=== PATIENT | female | born 1975 | race Two or more races ===

== ENCOUNTER 2019-09-05 01:10 | Emergency (ER) | payer OTHER ==
[~2019-09-05] VITALS: Ht 170.2 cm; Wt 82.0 kg
[2019-09-05] MEDS ORDERED: ONDANSETRON HCL 4MG/2ML INJ IV ONE (03:00)
[2019-09-05] MEDS ORDERED: MORPHINE SULFATE 2 MG/ML CPJ (NOT FOR IM USE) IV ONE (03:00)
[2019-09-05] MEDS ORDERED: KETOROLAC 30MG/ML VIAL IV ONE (04:00)
[2019-09-05] MEDS ORDERED: ETOMIDATE 2MG/ML 10ML VIAL IV ONE ×2 (06:15)
[2019-09-05] MEDS ORDERED: HYDROCODONE/ACETAMINOPHEN 5/325MG TABLET PO ONE (08:30)
[2019-09-05 10:25] VITALS: BP 128/88
== END 2019-09-05 10:22 | disposition home or self-care (01) ==
LOC: ER 01:56
DX: S43.004A Unspecified dislocation of right shoulder joint, initial encounter (principal); W01.0XXA Fall on same level from slipping, tripping and stumbling without subsequent striking against object, initial encounter; Y93.89 Activity, other specified; Y92.89 Other specified places as the place of occurrence of the external cause; Y99.8 Other external cause status
CPT/HCPCS: 73030; 96374; 96375; 99283; J1885; J2270; J2405; J3490; L3670